=== PATIENT | male | born 1970 | race African-American/Black ===

== ENCOUNTER → 2022-03-19 | Emergency (ER) | payer OTHER ==
[~2022-03-19] VITALS: Ht 172.7 cm; Wt 113.4 kg
[~2022-03-19] MED LIST: KETO10TA2 PO; VASOTEC20 MG; ZESTRIL40 M1 PO
== END | disposition home or self-care (01) ==
LOC: ER 13:00
DX: I10 Essential (primary) hypertension (principal); M25.512 Pain in left shoulder